=== PATIENT | male | born 1980 | race Caucasian/White ===

== ENCOUNTER → 2020-11-17 09:51 | Outpatient (BNVA) | payer SELFPAY | PROVIDERS: Family Provider Nurse Practitioner; PCP Nurse Practitioner Family; Visit Provider Nurse Practitioner Family | DX: E78.5 Hyperlipidemia, unspecified (principal); I10 Essential (primary) hypertension | CPT/HCPCS: 80053; 80061 ==

== ENCOUNTER → 2022-06-05 08:47 | Outpatient (BNVA) | payer SELFPAY | PROVIDERS: Family Provider Nurse Practitioner; PCP Nurse Practitioner Family; Visit Provider Nurse Practitioner Family | DX: I10 Essential (primary) hypertension (principal) | CPT/HCPCS: 80053 ==

== ENCOUNTER 2022-08-29 16:34 | Emergency (ER) | payer SELFPAY ==
[2022-08-29] VITALS (14 sets, daily range): BP systolic 115–181; BP diastolic 66–101; PULSE 83–105; RESP 12–18; TEMP 36.9; O2SAT 91–99
--- NOTE | 2022-08-29 16:52 | XRR_ITS ---
PROCEDURE INFORMATION: Exam: XR Left Ankle Exam date and time: 08/29/2022 4:55 PM Age: 42 years old Clinical indication: Injury or trauma; Fall; Fracture, traumatic; Closed fracture; Ankle; Left; Not specified TECHNIQUE: Imaging protocol: Radiologic exam of the Left ankle. Views: 3 or more views. COMPARISON: No relevant prior studies available. FINDINGS: Bones/joints: Displaced transverse fracture through the medial malleolus. Oblique fracture through the distal fibular diaphyses with 1/2 shaft width anterior displacement of the distal fracture fragment. There is also a displaced posterior malleolar fracture. The distal tibia is medially subluxed from the talus. Soft tissues: Soft tissue swelling around the ankle. XR/XR ankle LT min 3V* [id number] IMPRESSION: Displaced trimalleolar fractures with medial subluxation of the tibia.
--- NOTE | 2022-08-29 16:53 | W.ED.EXTPRO ---
HPI - Extremity Problem General: Chief complaint: Extremity Injury, Lower Stated complaint: left leg/foot injury Time Seen by Provider: 08/29/22 16:47 Source: patient Mode of arrival: EMS Limitations: no limitations History of Present Illness: .Patient injured his left ankle during sledding with his he states that they were going down a hill got off course and ran into trees. He states he had immediate pain and inability to bear weight on his left ankle. He denies any other injury at this time. Rather rapidly and then MD Complaint: extremity pain and extremity swelling Location: left Exacerbating factors: range of motion and weight bearing Associated symptoms: Deny fever(s) Review of Systems Const: Denies: fever(s) or chills Eyes: Denies: change in vision Card: Denies: syncope or pre-syncope Resp: Denies: dyspnea Musc: Denies: neck pain or back pain Neuro: Denies: headache(s), numbness in extremities or weakness in extremities Senthil/Lymph: Denies: easy bruising or easy bleeding PFS ED PFSH: Medical History Environmental and seasonal allergies Family History Other Diabetes Hypertension Denies family history of Bleeding disorder Social History Smoking and tobacco status: current some day smoker Second hand smoke exposure: Yes Smoking risk assessment/counseling performed?: Yes Alcohol intake: unknown Desire information about alcohol rehabilitation?: No Counseling given: No Desire information about substance/drug rehabilitation?: No Counseling given: No Adopted: No Caregiver/support person: No Lives independently: Yes History of recent travel: No Current gender identity: Male Physical Exam Narrative: EXAM NARRATIVE: . Appears to be in some discomfort. Answers questions in a goal-directed fashion. Const: COMMON NORMALS: average body habitus and patient oriented x3 HENMT: COMMON NORMALS: normocephalic and atraumatic HEAD & SCALP: normocephalic and atraumatic Eye: COMMON NORMALS: Equal, round and reactive pupils present and EOMs intact bilaterally PUPIL: Yes Equal, round and reactive pupils present Neck/C-Spine: COMMON NORMALS: full ROM CERVICAL SPINE: Yes cervical ROM normal, No Cervical spine tenderness and No step off deformity Chest: COMMONS NORMALS: normal inspection of the chest and normal palpation of entire chest wall Resp: COMMON NORMALS: normal respiratory effort, No retractions, No use of accessory muscles and clear to auscultation bilaterally AUSCULTATION: clear to auscultation bilaterally Cardio: COMMON NORMALS: regular rate, regular rhythm, No murmurs present (Cardio) and Peripheral pulses 2+ throughout RATE: regular rate RHYTHM: regular rhythm PERIPHERAL PULSES: Peripheral pulses 2+ throughout : COMMON NORMALS: Yes no CVA tenderness BLADDER/KIDNEY EXAM: Yes no CVA tenderness Back/Pelvis: COMMON NORMALS: no CVA tenderness, thoracic and lumbar spine normal to inspection, no thoracic nor lumbar tenderness and thoraco-lumbar ROM normal PELVIS: Yes no pain with anterior-posterior compression and Yes no pain with lateral compression Extremity: COMMON NORMALS: capillary refill normal NARRATIVE EXTREMITY EXAM: Left ankle has obvious deformity. He has good intact distal sensation, good capillary refill, intact dorsalis pedis and posterior tibial pulses. No evidence of skin laceration, abrasion etc. Neuro: COMMON NORMALS: patient oriented x3 Procedures Orthopedic Fracture Reduction Fracture #1: Time Out Performed: Yes Side: left (Lower extremity) Analgesia: procedural sedation Technique: direct manipulation Post Reduction X-rays Demonstrate: anatomical reduction Post-reduction neuro exam: intact Post-reduction vascular exam: intact Splint Applied: Yes (Posterior plus stirrup) Patient Tolerated Procedure: well Course Reevaluation(s): Reevaluation #1: Patient recovered from sedation uneventfully. Still complaining of some pain in his left ankle. We will continue with analgesia. Discussed with Ortho who requests a CT scan for preoperative planning. Time: 18:38 Reevaluation #2: CT scan completed. Patient's pain is improved. Currently stable to be discharged on nonweightbearing status for Ortho follow-up and operative repair. Time: 19:45 Consultations: Consultation #1: Images sent to Dr. Glass who agreed with current plan with nonweightbearing, request CT scan, he will follow him up for delayed repair. Time: 18:38 Vital Signs: Vital signs: Vital Signs Temperature 98.5 F 08/29/22 16:35 Pulse Rate 84 08/29/22 17:58 Respiratory Rate 16 08/29/22 18:43 Blood Pressure 127/70 08/29/22 17:58 Pulse Oximetry 99 08/29/22 18:43 Oxygen Delivery Me thod 08/29/22 17:58 Oxygen Flow Rate 2 08/29/22 17:30 MDM - Extremity (Nontraumatic) Medical Decision Making This gentleman was transported to the emergency department after suffering a sledding accident and resulting in a isolated left lower extremity injury. Clinically consistent with a fracture dislocation which was confirmed by radiography. The patient had intact neurovascular status prior to reduction. After informed consent and usual protocol a procedural sedation for reduction of his fracture was completed without difficulty. Orthopedics was consulted who requested a CT scan for preoperative planning. The patient was placed in posterior and stirrup splinting for immobilization and will be placed on nonweightbearing status. He will be discharged on analgesia with orthopedic follow-up. Lab Data I reviewed the patient's lab results. Radiology Impressions Ankle X-Ray 08/29/22 17:13 IMPRESSION: Improved alignment of the trimalleolar ankle fracture post reduction and casting. Discharge Plan Discharge Patient Disposition: Home Clinical Impression: Closed fracture dislocation of left ankle Condition: Stable Prescriptions: New Percocet 10-325 mg tablet 1 tab PO TID PRN (Reason: pain) Qty: 20 0RF No Action lisinopril 10 mg tablet 10 mg PO DAILY Discharge Orders: Discharge ED (Routine); Ordered 08/29/22 Ordered By: Ken Valencia Referrals: Anu Rashid FNP [Primary Care Provider] - Ronnie Duval DO [Physician] - 1-3 days (tri-mal in ED) Discharge Diet: Usual diet Discharge Activity: Use walker/crutches as instructed Patient Instructions: Opioid Safety, Pain Management Activity Restrictions/Additional Instructions: You must use crutches and not bear weight on your left leg. Orthopedics will contact you tomorrow to arrange follow-up for operative repair. If you develop any concerns such as increasing pain, numbness, discoloration of your toes or other concerns return to the emergency department immediately. Coding Level of Care Code ED Ad Operations Coordinator for Estel[facility] Love Exam Comprehensive
[2022-08-29] MEDS: fentaNYL 50 mcg/mL INJ 2mL 104.3 MCG IVP (17:00)
--- NOTE | 2022-08-29 17:13 | XRR_ITS ---
PROCEDURE INFORMATION: Exam: XR Left Ankle Exam date and time: 08/29/2022 5:26 PM Age: 42 years old Clinical indication: Pain; Ankle; Left; Additional info: Fracture TECHNIQUE: Imaging protocol: Radiologic exam of the Left ankle. Views: 1 or 2 views. COMPARISON: CR (LOW EXM, ) 08/29/2022 4:55 PM FINDINGS: Bones/joints: Improved alignment of the trimalleolar ankle fracture post reduction and casting. Soft tissues: Normal. XR/XR ankle LT 2V [id number] IMPRESSION: Improved alignment of the trimalleolar ankle fracture post reduction and casting.
[2022-08-29] MEDS: fentaNYL 50 mcg/mL INJ 2mL IVP (17:15)
[2022-08-29] MEDS: propofol 10 mg/mL SDV 20 mL 52.2 MG IVP (17:43)
[2022-08-29] MEDS: sodium chloride 0.9% 500 ML 999 ML IV (17:46)
[2022-08-29] MEDS: oxyCODONE-APAP 10-325 mg Tablet 1 TAB PO (18:11)
--- NOTE | 2022-08-29 18:29 | CTR_ITS ---
PROCEDURE INFORMATION: Exam: CT Left Lower Extremity Without Contrast Exam date and time: 08/29/2022 7:24 PM Age: 42 years old Clinical indication: Injury or trauma; Other: Snow sledding; Fracture, traumatic; Other: Complex; Ankle; Left; Talus; Additional info: Complex fracture TECHNIQUE: Imaging protocol: CT of the Left lower extremity without contrast was performed. Radiation optimization: All CT scans at this facility use at least one of these dose optimization techniques: automated exposure control; mA and/or kV adjustment per patient size (includes targeted exams where dose is matched to clinical indication); or iterative reconstruction. Other protocol: This patient has received 0 known CTs and 0 known cardiac nuclear medicine studies in the 12 months prior to the current study. COMPARISON: CR (LOW EXM, ) 08/29/2022 5:26 PM RADIATION DOSE METRICS: Total DLP (mGy-cm): 144.74 FINDINGS: Bones/joints: Minimally displaced fracture through the posterior distal tibia/posterior malleolus by up to 3 mm with roughly 1-2 mm of offsetting at the tibiotalar joint. Minimally displaced fragments of the comminuted medial malleolar fracture up to 2 mm. Comminuted fracture of the distal fibular diaphysis with a few tiny ossific fragments measuring up to 4 mm in size. There are also avulsion fractures of the anterior aspect of the lateral malleolus with the largest linear fracture fragment measuring up to 1.2 cm in size. Small avulsed fracture fragments seen along the anterolateral aspect of the distal tibia measuring up to 6 mm in size as noted on series 9, image 37. A few scattered tiny ossific fragments project in the tibiotalar joint space the largest being a 2 mm fragment adjacent the medial malleolus series 9, image 33. Soft tissues: Subcutaneous edema/soft tissue swelling noted around the ankle fractures. CT/CT ankle LT wo con* [id number] IMPRESSION: Trimalleolar fractures as described in the body of the report.
[2022-08-29] MEDS: HYDROmorphone 1 mg/mL INJ 1 mL IVP (18:43)
[2022-08-29] MEDS: ketorolac 30 mg/mL INJ 15 MG IVP (20:10)
--- NOTE | 2022-08-30 09:43 | DCPLANNER ---
Addendum entered by Monika Neri 09/27/22 07:45: atient had a follow up appointment scheduled with ortho - patient did attend appointment. Addendum entered by Monika Neri 08/30/22 15:35: Patient has a follow up appointment scheduled for Wednesday, August 31, 2022 at 10:[address] Vidal at ortho. Clinic will call patient with appointment information. Original Note: pig farm manager had message to schedule a follow up appointment for patient with ortho. pig farm manager sent patients information to to the front office staff at ortho. Patients information will be printed and reviewed. Clinic will call patient with appointment information.
== END 2022-08-29 20:17 | disposition home or self-care (01) ==
PROVIDERS: Emergency Provider Emergency Medicine; PCP Nurse Practitioner Family
DX: S82.852A Displaced trimalleolar fracture of left lower leg, initial encounter for closed fracture (principal); F17.210 Nicotine dependence, cigarettes, uncomplicated; Y93.23 Activity, snow (alpine) (downhill) skiing, snowboarding, sledding, tobogganing and snow tubing; W22.09XA Striking against other stationary object, initial encounter
CPT/HCPCS: 27818; 73600; 73610; 73700; 96374; 96375; 99285; J1170; J1885; J2704; J3010; J7040

== ENCOUNTER → 2022-09-06 09:36 | Day surgery (SDC) | payer SELFPAY ==
[2022-09-05 13:27] VITALS: BMI 31.1
[2022-09-06] VITALS (13 sets, daily range): BP systolic 87–134; BP diastolic 55–95; PULSE 76–98; RESP 14–18; TEMP 36.2–36.6; O2SAT 95–100
--- NOTE | 2022-09-06 10:05 | W.PM.OPSUD ---
Surgery/Procedure H&P Update DATE OF PROCEDURE: September 06, 2022 DATE H&P PERFORMED: 08/31/22 CHANGES TO PREVIOUS DOCUMENTATION: No changes PREOP DIAGNOSIS: Left ankle pilon fracture PRIMARY INDICATION FOR PROCEDURE: Left ankle pilon fracture PLANNED PROCEDURE: Operation Date: 09/06/22 11:15 Proposed Procedures p ?Left ankle Pilon [id number],S82.872(Left) - Phil Vidal DPM
--- NOTE | 2022-09-06 10:08 | ANES.PREANE2 ---
Pre-Anesthetic Assessment Height/Weight: Height 1.83 m Weight 104.326 kg Temp Pulse Resp BP Pulse Ox O2 Del Method 97.8 F 98 16 127/95 96 09/06/22 09:56 09/06/22 09:56 09/06/22 09:56 09/06/22 09:56 09/06/22 09:56 09/06/22 09:56 Preop Diagnosis: Left ankle pilon fracture Operation Date: 09/06/22 11:15 Proposed Procedures p ?Left ankle Pilon [id number],S82.872(Left) - Phil Vidal DPM Familial anesthetic complications: None Was Beta Yahir taken within 24 hours: N/A Was Clonidine taken within 24 hours: N/A Last intake: Intake Last Liquid Date 09/05/22 Last Liquid Time 23:50 Last Solid Date 09/05/22 Last Solid Time 23:50 Social No alcohol and No tobacco Exam alert, oriented x 3, clear to auscultation bilaterally and regular rate & rhythm Airway Mallampati: Class III Dentition: full CV/HEM Hypertension Metabolic Hyperlipidemia Anesthetic Plan ASA status: 4 Anesthesia: General and Regional (specify below) Risk of > 500 ml blood loss (7ml/kg in children): No Medications/Allergies Home Medications Medication Instructions Recorded Confirmed Last Taken Type lisinopril 10 mg tablet 10 mg PO DAILY 08/29/22 09/05/22 09/05/22 08:00 History oxycodone-acetaminophen 10 mg-325 1 tab PO TID PRN pain 7 days #21 08/31/22 09/05/22 09/06/22 08:00 Rx mg tablet (Percocet) tabs aspirin 81 mg tablet 81 mg PO DAILY 09/05/22 09/05/22 09/05/22 08:00 History Allergies Allergy/AdvReac Type Severity Reaction Status Date / Time amoxicillin Allergy Unknown Unknown Verified 08/31/22 10:21 erythromycin base Allergy Unknown Unknown Verified 08/31/22 10:21 [facility] Anesthesia Medical History Environmental and seasonal allergies Family History Other Diabetes Hypertension Denies family history of Bleeding disorder Social History Smoking and tobacco status: current some day smoker Second hand smoke exposure: Yes Smoking risk assessment/counseling performed?: Yes Alcohol intake: unknown Desire information about alcohol rehabilitation?: No Counseling given: No Desire information about substance/drug rehabilitation?: No Counseling given: No Adopted: No Caregiver/support person: No Lives independently: Yes History of recent travel: No Current gender identity: Male Data Anesthesia Cardiac Studies: No Data to Display
[2022-09-06] MEDS: sodium chloride 0.9% 1,000 ML 30 ML IV (10:38)
[2022-09-06] MEDS: CELEcoxib 200 mg Capsule 400 MG PO (10:38)
[2022-09-06] MEDS: gabapentin 300 mg Capsule PO (10:39)
--- NOTE | 2022-09-06 10:39 | ANES.PROC ---
Anesthesia Procedures Procedure/Date: 09/06/22 Nerve Block ^: Nerve Block 1: Main Anesthesia: general anesthesia Time Out Performed: Yes Consent: requested by attending/covering physician, from patient, risks and benefits reviewed and patient agrees to proceed Nerve block location: popliteal (L) Anesthesia monitors applied: pulse oximetry, EKG, BP cuff and oxygen Nerve block position: supine Anesthetic Used: ropivicaine 0.5% (20 ml) and with decadron (2 mg) Ultrasound used to: recognize landmarks Nerve Stimulator Used?: No Interscalene/Femoral BLK: 4 stimuplex 21 g needle used for position and inplane approach, visualize local anesthetic spread and no vascular puncture identified Injection: neg aspiration of heme Patient Tolerated Procedure: well and no complications Complications: none Nerve Block 2: Main Anesthesia: general anesthesia Time Out Performed: Yes Consent: requested by attending/covering physician, from patient, from other, risks and benefits reviewed and patient agrees to proceed Nerve block location: adductor canal Anesthesia monitors applied: pulse oximetry, EKG, BP cuff and oxygen Nerve block position: supine Anesthetic Used: ropivicaine 0.5% (10) and with decadron (3 mg) Ultrasound used to: recognize landmarks and visualize and ID femerol nerve Nerve Stimulator Used?: No Interscalene/Femoral BLK: 4 stimuplex 21 g needle used for position and inplane approach, visualize local anesthetic spread and no vascular puncture identified Injection: neg aspiration of heme Patient Tolerated Procedure: well Complications: none
[2022-09-06] MEDS: clindamycin 600 MG/50 ML PREMIX 100 MG IV (10:45)
--- NOTE | 2022-09-06 11:21 | SUR.OPER ---
notified of surgical start.
--- NOTE | 2022-09-06 13:31 | SUR.OPER ---
called and notified her of surgical progress.
--- NOTE | 2022-09-06 14:05 | XR_ITS ---
WS: [id number] XR ankle LT 2V [id number] REASON FOR EXAM: OR PICS FINDINGS: Previous complex fracture/dislocation of the left ankle. Fixation of the fibular and posterior malleolar fracture sites with plate and screw. Long screw fixat ion of the medial malleolar fracture. Fracture fragments and surgical appliances are in proper position and alignment. Ankle mortise intact. Complex fracture dislocation of the left ankle without abnormality. XR/XR ankle LT 2V [id number] IMPRESSION: Fixation of
--- NOTE | 2022-09-06 14:24 | XR_ITS ---
WS: [id number] XR ankle LT min 3V* [id number] REASON FOR EXAM: Post op FINDINGS: Previous complex fracture/dislocation of the left ankle with subsequent plate and screw fixations of distal fibular diaphyseal fracture, posterior malleolar fracture, and long screw fixation of medial m alleolar fracture. Ankle mortise is intact. Surgical prostheses in proper position and alignment. Appropriate bone and joint alignment. No change compared to intraoperative examination this same day. XR/XR ankle LT min 3V* [id number] IMPRESSION: Stable fixation of complex left ankle fracture/dislocation.
[2022-09-06] MEDS: ondansetron 2 mg/ML SDV 2 mL 4 MG IVP ×2 (14:39→15:42)
[2022-09-06] MEDS: metoclopramide 5 mg/mL SDV 2 mL 10 MG IVP (14:55)
--- NOTE | 2022-09-06 17:18 | ANE.PACU2 ---
Inpatient post-anesthesia follow up: Airway intact: Yes Vital signs: Temperature 97.9 F Pulse Rate 84 Respiratory Rate 18 Blood Pressure 122/78 Pulse Oximetry 98 Oxygen Delivery Me thod Room Air Oxygen Flow Rate 6 Fraction of Inspir ed Oxygen Hydration adequate: Yes Nausea and vomiting: No Pain level: 1 Mental status: Baseline
--- NOTE | 2022-09-06 20:30 | P.OP_ITS ---
Operative Report Date of procedure: September 06, 2022 Pre-op diagnosis: Preop Diagnosis Left ankle pilon fracture Post-op diagnosis: Same Post-op findings: Distal tibia pilon fracture with diaphyseal fibular fracture. Distal articular surface of tibia was able to be restored as well as length the fibula. Procedure done: Open reduction internal fixation left pilon fracture (tibia and fibula) CPT 86553 Implants: -7 hole one third tubular plate from [place] -6-hole Y plate 3.5 from [place] -4.0 cannulated screws x2 for medial malleolus -3.5 mm locking and nonlocking screws for plates Pathology: None Surgeon: Dr. Phil Vidal, D.P.M. Estimated blood loss: Less than 20cc's 1. Prone 114 minutes 2. Supine 31 minutes Complications: None Findings: See above Brief History: Patient is a 42-year-old male that has a history of left ankle pilon fracture. The patient sustained this injury while sliding. The extent of the injury requires open reduction internal fixation due to the inherent stability. A lengthy discussion regarding the procedure, including risks and complications has been had with the patient and is noted in the recent clinic note. Written and verbal consent have been obtained. All patient questions have been answered to the patient?s satisfaction. No written or verbal guarantees have been given or implied. The patient has been NPO since midnight. The history has been reviewed and the history and physical is current. The signed consent was confirmed and placed in the patient chart. Patient imaging has been reviewed and is consistent with the diagnosis. Under mild sedation, the patient was brought into the operating room and placed on the table in the prone position. IV antibiotics were given by the anesthesia team as preoperative surgical prophylaxis. General sedation was then performed by the anesthesiateam. The patient received a popliteal block to the left lower extremity in the preoperative area by the anesthesia department. A pneumatic tourniquet was then placed about the left thigh. The operative extre mity was then prepped and draped in the usual fashion. The extremity was then elevated and exsanguinated before the tourniquet was inflated to 325 mmHg. After inflation, the following procedure was then performed. Procedure: Attention was directed to the posterior left ankle at the interval in between the fibula and the lateral border of the Achilles tendon. A 12 cm incision was made using #15 blade. Dissection was carried down through subcutaneous and superficial fascia. Any bleeders were cauterized as necessary during dissection. Care was taken to identify the sural nerve at the distal aspect of the incision and it was retracted laterally. Dissection was carried down to the level of the crural fascia which was incised to expose the peroneal tendons. These were retracted laterally. Dissection was carried down to the second fascial layer which was incised and the flexor hallucis longus was reflected off the fibula and retracted medially thus exposing the posterior aspect of the fibula as well as the posterior aspect of the tibia. The diaphyseal fracture of the fibula was noted at this point and was cleared from hematoma using accommodation of curette and dental pick. The fibula was then distracted out to length and reduced to the appropriate position before being held in place by temporary K wire. Next a one third tubular plate was placed on the posterolateral aspect of the fibula in buttress fashion. Good position of the plate was noted on C-arm imaging as well as clinically. The holes of the plate were then drilled and filled in standard fashion using 3.5 locking and nonlocking screws. Good position of the plate and screws was noted clinically as well as on C-arm imaging. Next, attention was directed to the posterior aspect of the tibia. The large posterior malleolus fragment was reduced into the appropriate position and this was confirmed on C-arm imaging. A congruent plafond was visualized and the fragment was temporarily fixated using 2 K wires. Next a 6-hole Y plate was placed on the posterior aspect of the tibia in buttress fashion. This was then filled using 3.5 nonlocking screws bicort icanando. Positioning of the plate and screws was confirmed on C-arm imaging. Reduction of the plafond was again noted. The incision site was then irrigated with copious amounts sterile saline before attention was directed to closure. Deep tissue was closed with 2-0 Vicryl followed by subcuticular closure with 3-0 Vicryl and skin closure with 3-0 nylon in horizontal mattress fashion. The tourniquet was let down and good hyperemic response was noted to all digits of the left foot. The patient was then flipped to the supine position. The left lower extremity was then prepped and draped in the standard fashion. The extremity was then elevated and exsanguinated. attention was directed to the medial malleoli region where a 5 cm incision was made directly over the medial malleolus using a #15 blade. Dissection was carried down through subcutaneous and superficial fascia to the level of the medial malleolus. The fracture line was visualized and cleaned out using a combination of curette and dental pick. A [id number] reduction clamp was used to reduce the fracture before 2 guidewires were driven into the medial malleolus perpendicular to the fracture line. This was confirmed clinically as well as on C-arm imaging. The wires were then drilled in preparation for the 4 oh cannulated screws. Next, two 4.0 x 50 mm short thread headed cannulated screws were inserted over the wire and across the fracture site. Good position of the screws was noted on C-arm imaging as well as clinically. The site was then irrigated with sterile saline before attention was directed to closure. Deep tissue was closed with 2-0 Vicryl followed by skin closure with 3-0 nylon. Incision sites were then dressed with Xeroform, 4 x 4 gauze, Kerlix before being placed in a well-padded below th e knee posterior splint. The patient tolerated the procedure and anesthesia well and without complication. The patient was transported from the operating room to the recovery room with vital signs stable and vascular status intact to all digits of the left foot. The patient was given both written and verbal instructions to remain strict nonweightbearing to the operative extremity, to keep dressi ngs/splint clean, dry and intact and to take pain medication as directed. The patient will follow-up in the outpatient setting at their scheduled appointment. The patient was discharged with my personal number and was instructed to call if any questions or issues should arise. They were discharged home once anesthesia criteria was met.
== END | disposition home or self-care (01) ==
PROVIDERS: PCP Nurse Practitioner Family; Visit Provider Podiatrist Foot & Ankle Surgery
PROC: (CPT 27828; principal; 2022-09-06 10:55)
DX: S82.872A Displaced pilon fracture of left tibia, initial encounter for closed fracture (principal); W01.0XXA Fall on same level from slipping, tripping and stumbling without subsequent striking against object, initial encounter; I10 Essential (primary) hypertension; E78.5 Hyperlipidemia, unspecified; F17.210 Nicotine dependence, cigarettes, uncomplicated; Z79.82 Long term (current) use of aspirin
CPT/HCPCS: 27828; 73600; 73610; 76000; C1713; J0131; J1100; J1170; J1885; J2250; J2405; J2704; J2765; J2795; J3010; J3490; J7030

== ENCOUNTER → 2022-09-21 13:33 | Outpatient (BNVA) | payer SELFPAY | PROVIDERS: PCP Nurse Practitioner Family; Visit Provider Podiatrist Foot & Ankle Surgery | DX: S82.402A Unspecified fracture of shaft of left fibula, initial encounter for closed fracture (principal); S82.872A Displaced pilon fracture of left tibia, initial encounter for closed fracture; X58.XXXA Exposure to other specified factors, initial encounter | CPT/HCPCS: 73610 ==

== ENCOUNTER 2022-10-05 06:00 | Outpatient (CLI) | payer SELFPAY | END 2022-10-05 06:01 | disposition home or self-care (01) | LOC: SPT 10-09 13:34 | PROVIDERS: PCP Nurse Practitioner Family; Visit Provider Podiatrist Foot & Ankle Surgery | DX: Z46.89 Encounter for fitting and adjustment of other specified devices (principal); S82.872D Displaced pilon fracture of left tibia, subsequent encounter for closed fracture with routine healing; X58.XXXD Exposure to other specified factors, subsequent encounter | CPT/HCPCS: 97760; L4361 ==

== ENCOUNTER → 2022-10-05 13:37 | Outpatient (BNVA) | payer SELFPAY | PROVIDERS: PCP Nurse Practitioner Family; Visit Provider Podiatrist Foot & Ankle Surgery | DX: S82.872A Displaced pilon fracture of left tibia, initial encounter for closed fracture (principal); X58.XXXA Exposure to other specified factors, initial encounter; S82.402A Unspecified fracture of shaft of left fibula, initial encounter for closed fracture | CPT/HCPCS: 73610 ==

== ENCOUNTER → 2022-10-22 08:37 | Outpatient (BNVA) | payer SELFPAY | PROVIDERS: PCP Nurse Practitioner Family; Visit Provider Podiatrist Foot & Ankle Surgery | DX: S82.872A Displaced pilon fracture of left tibia, initial encounter for closed fracture (principal); X58.XXXA Exposure to other specified factors, initial encounter | CPT/HCPCS: 73610 ==

== ENCOUNTER → 2023-01-10 10:03 | Outpatient (BNVA) | payer SELFPAY | PROVIDERS: PCP Nurse Practitioner Family; Visit Provider Nurse Practitioner Family | DX: E78.5 Hyperlipidemia, unspecified (principal) | CPT/HCPCS: 80061 ==

== ENCOUNTER → 2023-04-24 11:49 | Outpatient (BNVA) | payer SELFPAY | PROVIDERS: PCP Nurse Practitioner Family; Visit Provider Nurse Practitioner Family | DX: I10 Essential (primary) hypertension (principal); E78.5 Hyperlipidemia, unspecified | CPT/HCPCS: 80053; 80061 ==

== ENCOUNTER → 2024-07-09 14:29 | Outpatient (BNVA) | payer OTHER, SELFPAY | PROVIDERS: PCP Nurse Practitioner Family; Visit Provider Physician Assistant | DX: M25.521 Pain in right elbow; M77.8 Other enthesopathies, not elsewhere classified; M77.11 Lateral epicondylitis, right elbow; M24.021 Loose body in right elbow | CPT/HCPCS: 73080 ==

== ENCOUNTER → 2024-11-09 09:53 | Outpatient (BNVA) | payer OTHER, SELFPAY | PROVIDERS: PCP Nurse Practitioner Family; Visit Provider Nurse Practitioner Family | DX: I10 Essential (primary) hypertension (principal); E78.5 Hyperlipidemia, unspecified | CPT/HCPCS: 80053; 80061 ==